=== PATIENT | female | born 1965 | race Caucasian/White ===

== ENCOUNTER 2024-02-26 22:30 | Emergency (ER) | payer OTHER ==
[~2024-02-26] VITALS: Ht 144.8 cm; Wt 42.4 kg
[~2024-02-26 22:30] MED LIST: LORA-205; NOR10T; PRO20T; SPIR25TA; TRAZ-227
[2024-02-27 00:07] VITALS: BP 122/76
[2024-02-27 00:09] VITALS: PULSE 95; RESP 18; O2SAT 97
[2024-02-27 00:47] VITALS: TEMP 97.5
[2024-02-27] MEDS: IBUPROFEN 600 MG TAB PO ONE (00:47)
[2024-02-27] MEDS: HYDROcodone-ACET 5/325MG TAB PO ONE (00:47)
[2024-02-27] MEDS: KETOROLAC TROMETH 60MG/2ML VIAL IM ONE (01:08)
== END 2024-02-27 01:53 | disposition home or self-care (01) ==
LOC: ER 22:30
DX: S52.692A Other fracture of lower end of left ulna, initial encounter for closed fracture (principal); F10.10 Alcohol abuse, uncomplicated; Z88.0 Allergy status to penicillin; Z88.8 Allergy status to other drugs, medicaments and biological substances; Z79.899 Other long term (current) drug therapy; W18.39XA Other fall on same level, initial encounter; Y93.89 Activity, other specified; Y92.89 Other specified places as the place of occurrence of the external cause; Y99.8 Other external cause status
CPT/HCPCS: 29105; 73110; 96372; 99283; J1885